=== PATIENT | male | born 1995 | race Caucasian/White ===

== ENCOUNTER 2022-11-27 11:01 | Emergency (ER) | payer BC, OTHER, SELFPAY ==
[2022-11-27] MEDS ORDERED: Fluorescein Opthalmic Strip ONE (11:45)
== END 2022-11-27 12:22 | disposition home or self-care (01) ==
LOC: ERS 11:01
DX: S05.01XA Injury of conjunctiva and corneal abrasion without foreign body, right eye, initial encounter (principal); X19.XXXA Contact with other heat and hot substances, initial encounter
CPT/HCPCS: 99283

== ENCOUNTER 2022-12-23 09:34 | Emergency (ER) | payer BC, SELFPAY ==
[2022-12-23] MEDS ORDERED: Ketorolac Tromethamine 30 MG/ML VIAL ONE (09:53)
[2022-12-23] MEDS ORDERED: Metoclopramide HCl 10 MG/2 ML VIAL ONE (09:53)
[2022-12-23] MEDS ORDERED: diphenhydrAMINE 50 MG/ML VIAL ONE (09:53)
[2022-12-23 10:00] LABS: #Monocytes 0.6 thou/uL (0.11-0.59); #Neutrophils 3.6 thou/uL (1.40-6.50); %Basophils 0.2 % (0.0-1.0); %Eosinophils 0.2 % (0.0-10.0); %Lymphocytes 20.6 % (21.0-51.0); %Monocytes 10.4 % (0.0-10.0); %Neutrophils 68.4 % (42.0-75.0); Hemoglobin 14.8 g/dL (14.0-18.0); Mean Corpuscular HGB CONC 33.4 g/dL (32.0-36.0); Mean Corpuscular Hemoglobin 28.6 pg (27.0-31.0); Mean Corpuscular Volume 85.5 fl (78.0-98.0); Mean Platelet Volume 9.7 fL (7.4-10.4); Platelet Count 215 10x3/uL (130-400); RBC Distribution Width 12.8 % (11.5-14.5); Red Blood Cell (RBC) Count 5.18 mill/uL (4.70-6.10); White Blood Cell (WBC) Count 5.3 10x3/uL (4.8-10.8)
[2022-12-23 10:27] LABS: ALT (SGPT) 16 U/L (8-55); AST (SGOT) 15 U/L (5-34); Albumin 4.7 g/dL (3.5-5.0); Alkaline Phosphatase 92 U/L (40-110); Anion Gap 12 mmol/L (10-20); BUN (Urea Nitrogen) 16 mg/dL (8.9-20.6); Bilirubin, Total 2.1 mg/dL (0.2-1.2); CK (CPK) 57 U/L (30-200); Calc. Creatinine Clearance 0 mL/min (70-130); Carbon Dioxide 30 mmol/L (22-29); Chloride 97 mmol/L (98-107); Estimated GFR 121; Glucose 117 mg/dL (70-105); Lipase 26 U/L (8-78); Protein, Total 7.7 g/dL (6.0-8.3); Sodium 135 mmol/L (136-145)
[2022-12-23] MEDS ORDERED: Acetaminophen 500 MG TAB ONE (11:12)
[2022-12-23] MEDS ORDERED: Dexamethasone 10 MG/ML VIAL ONE (11:12)
[2022-12-23 12:24] LABS: Bacteria/HPF None Seen HPF (None Seen); Bilirubin Negative (Negative); Blood, Urine Negative (Negative); CAUTI Indications for Culture Pelvic or flank pain; Clarity Clear (Clear); Glucose, Urine (Dipstick) Normal (Negative); Ketone, Urine 10 mg/dL (Negative); Leukocyte Negative Leu/uL (Negative); Nitrite Negative (Negative); Protein, Urine (Dipstick) Negative (Neg-Trace); RBC/HPF 0-3 HPF (0-3); Specific Gravity, Urine 1.023 (1.002-1.036); Squamous Epithelial None Seen HPF (0-3); Urobilinogen 6 mg/dL (Less than 2); WBC/HPF 0-3 HPF (0-3); pH, Urine 6.5 (5.0-9.0)
[2022-12-23 12:25] LABS: Urine Culture Reflex No No
== END 2022-12-23 12:55 | disposition home or self-care (01) ==
LOC: ERS 09:34
DX: G43.909 Migraine, unspecified, not intractable, without status migrainosus (principal); E80.7 Disorder of bilirubin metabolism, unspecified; R11.10 Vomiting, unspecified; F17.220 Nicotine dependence, chewing tobacco, uncomplicated
CPT/HCPCS: 36415; 80053; 81001; 82550; 83690; 83735; 85025; 96365; 96375; J1100; J1200; J1885; J2765